=== PATIENT | female | born 1940 | race Caucasian/White ===

== ENCOUNTER 2025-06-01 07:29 | Day surgery (SDC) | payer OTHER ==
[2025-05-26 12:19] VITALS: BMI 44.2
[2025-06-01] MEDS ORDERED: Glycopyrrolate 0.2 MG/ML 5 ML SYRINGE ONE (10:06)
[2025-06-01] MEDS ORDERED: Ketorolac Tromethamine 30 MG (1 mL) VIAL ONE (10:06)
[2025-06-01] MEDS ORDERED: Rocuronium Bromide 10 MG/ML (10ML VIAL) ONE ×2 (10:06→12:16)
[2025-06-01] MEDS ORDERED: PROPOFOL 20 ML ONE (10:07)
[2025-06-01] MEDS ORDERED: Heparin 5,000 UNITS/ML VIAL ONE (10:36)
[2025-06-01] MEDS ORDERED: Bupivacaine/Epinephrine 0.25% 30 ML VIAL ONE (11:42)
[2025-06-01] MEDS ORDERED: SUCCINYLCHOLINE/SOD CL,ISO/PF 200 MG/10 ML SYRINGE FS ONE (12:14)
[2025-06-01] MEDS ORDERED: Sevoflurane 250 ML INH ANEST BOTTLE ONE (12:47)
[2025-06-01] MEDS ORDERED: CEFAZOLIN 2 GM VIAL ONE (12:48)
[2025-06-01] MEDS ORDERED: HYDROcodone/Acetaminophen 5/325 mg Tablet ONE (16:10)
== END 2025-06-01 17:00 | disposition home or self-care (01) ==
LOC: CSHSDC 07:29
PROVIDERS: ATTEND Plastic Surgery
PROC: 0HR6X73 Replacement of Back Skin with Autologous Tissue Substitute, Full Thickness, External Approach (ICD-10-PCS; principal; 2025-06-01)
DX: C4A.62 Merkel cell carcinoma of left upper limb, including shoulder (principal); C7B.1 Secondary Merkel cell carcinoma; C77.3 Secondary and unspecified malignant neoplasm of axilla and upper limb lymph nodes; Z90.49 Acquired absence of other specified parts of digestive tract; Z90.710 Acquired absence of both cervix and uterus; Z98.890 Other specified postprocedural states; Z91.040 Latex allergy status
CPT/HCPCS: 78195; 88305; 88307; 88341; 88342; A9541; C1713; J1644; J1885; J2250; J2704; J3010; Q9968